=== PATIENT | female | born 1995 | race Caucasian/White ===

== ENCOUNTER 2018-02-04 16:13 | Emergency (ER) | payer OTHER ==
[~2018-02-04] VITALS: Ht 172.7 cm; Wt 90.7 kg
[2018-02-04] MEDS ORDERED: LACTATED RINGERS 1,000 ML IV ONE (16:40)
[2018-02-04 16:56] LABS: BILIRUBIN,URINE NEGATIVE (NEGATIVE); CLARITY,URINE CLEAR; COLOR,URINE YELLOW; GLUCOSE, URINE (UA) NEGATIVE (NEGATIVE); KETONES,URINE NEGATIVE (NEGATIVE); LEUKOCYTE ESTERASE ,URINE NEGATIVE (NEGATIVE); NITRITE,URINE NEGATIVE (NEGATIVE); PH,URINE 6 (5-9); PROTEIN,URINE NEGATIVE (NEGATIVE); UROBILINOGEN,URINE NORMAL (NORMAL)
--- NOTE | 2018-02-04 16:56 | ED Abdominal Pain ---
General Chief Complaint: Abdominal/GI Problems Stated Complaint: PAIN IN RT SIDE Nursing Triage Note: PT SENT [facility] FROM [facility] WITH COMPLAINT OF RIGHT SIDED ABD PAIN. [facility] WAS CONCERNED IT COULD BE PTS APPENDIX. PT STATES PAIN STARTED AROUND 2PM YESTERDAY, AND HAS BEEN RUNNING A FEVER SINCE. PT STATES THAT SHE HAS NOT HAD A BM SINCE SUNDAY, AND IS UNABLE TO GO. Sepsis Screen: No Definite Risk Source of Information: Patient Exam Limitations: No Limitations History of Present Illness Date Seen by Provider: Feb 04, 2018 Time Seen by Provider: 16:40 Initial Comments PT ARRIVES VIA POV FROM [facility] C/O LOWER ABDOMINAL PAIN SINCE 1400 YESTERDAY PAIN IS ALL ACROSS LOWER ABDOMEN, BUT IS WORSE IN RLQ PAIN IS WORSE WITH MOVEMENTS, WALKING, GOING UP STAIRS HAS NOT TAKEN ANYTHING FOR PAIN NO NAUSEA/VOMITING OR DIARRHEA. HAS NOT HAD A BM SINCE Sunday02/02/18 NO FEVER NO URINARY SYMPTOMS ATE BREAKFAST AT 0830 HAD WATER AT 1330 HAD COUPLE OF CUBES OF CHEESE AT 1415 LMP 01/23-01/30. NORMAL. ON OCP'S Allergies and Home Medications Allergies Coded Allergies: No Known Drug Allergies (Unverified , 02/04/18) Patient Home Medication List Home Medication List Reviewed: Yes Review of Systems Review of Systems Constitutional: no symptoms reported Respiratory: No Symptoms Reported Cardiovascular: No Symptoms Reported Gastrointestinal: See HPI, Abdominal Pain; Denies Nausea, Denies Vomiting Genitourinary: No Symptoms Reported Musculoskeletal: no symptoms reported; No back pain Skin: no symptoms reported Psychiatric/Neurological: No Symptoms Reported Endocrine: No Symptoms Reported Hematologic/Lymphatic: No Symptoms Reported Past Kdeccem-Zlzsrh-Ekajwq Hx Patient Social History Alcohol Use: Denies Use Recreational Drug Use: No Smoking Status: Never a Smoker Recent Foreign Travel: No Contact w/Someone Who Travel: No Recent Infectious Disease Expo: No Recent Hopitalizations: No Immunizations Up To Date Tetanus Booster (TDap): Unknown PED Vaccines UTD: Yes Seasonal Allergies Seasonal Allergies: Yes Past Medical History Surgeries: Yes (UMBILICAL HERNIA REPAIR ) Abdominal Respiratory: No Cardiac: No Neurological: No : No Reproductive Disorders: No Female Reproductive Disorders: Denies Genitourinary: No Gastrointestinal: No Musculoskeletal: No Endocrine: No HEENT: No Cancer: No Psychosocial: No Integumentary: No Blood Disorders: No Physical Exam Vital Signs Vital Signs - First Documented 02/04/18 16:23 Temp 100.1 Pulse 92 Resp 18 B/P (MAP) 135/84 (101) Pulse Ox 100 O2 Delivery Room Air Capillary Refill : Less Than 3 Seconds Height/Weight/BMI Height: 5'8.00" Weight: 200lbs. oz. [id number]; BMI Method:Stated General Appearance: WD/WN, no apparent distress, other (WALKS UPRIGHT AND MOVES WITHOUT DIFFICULTY) Respiratory: normal breath sounds, no respiratory distress, no accessory muscle use Cardiovascular: regular rate, rhythm, no murmur Gastrointestinal: normal bowel sounds, soft, no organomegaly, no pulsatile mass ; No distended, No guarding; rebound, tenderness (DIFFUSE LOWER ABDOMINAL TENDERNESS, MOST TENDER IN RLQ. + REBOUND WITH PAIN IN RLQ ); No hernia, No mass Back: normal inspection, no CVA tenderness Neurologic/Psychiatric: bottle caser II-XII nml as tested, no motor/sensory deficits, alert, normal mood/affect, oriented x 3 Skin: normal color, warm/dry Progress/Results/Core Measures Results/Orders Lab Results Laboratory Tests Test 02/04/18 16:35 Range/Units White Blood Count 9.8 4.3-11.0 10^3/uL Red Blood Count 4.89 4.35-5.85 10^6/uL Hemoglobin 14.1 11.5-16.0 G/DL Hematocrit 43 35-52 % Mean Corpuscular Volume 87 80-99 FL Mean Corpuscular Hemoglobin 29 25-34 PG Mean Corpuscular Hemoglobin Concent 33 32-36 G/DL Red Cell Distribution Width 13.5 10.0-14.5 % Platelet Count 275 130-400 10^3/uL Mean Platelet Volume 11.0 H 7.4-10.4 FL Neutrophils (%) (Auto) 67 42-75 % Lymphocytes (%) (Auto) 26 12-44 % Monocytes (%) (Auto) 6 0-12 % Eosinophils (%) (Auto) 1 0-10 % Basophils (%) (Auto) 0 0-10 % Neutrophils # (Auto) 6.5 1.8-7.8 X 10^3 Lymphocytes # (Auto) 2.6 1.0-4.0 X 10^3 Monocytes # (Auto) 0.6 0.0-1.0 X 10^3 Eosinophils # (Auto) 0.1 0.0-0.3 10^3/uL Basophils # (Auto) 0.0 0.0-0.1 10^3/uL Urine Color YELLOW Urine Clarity CLEAR Urine pH 6 5-9 Urine Specific [place] 1.015 L 1.016-1.022 Urine Protein NEGATIVE NEGATIVE Urine Glucose (UA) NEGATIVE NEGATIVE Urine Ketones NEGATIVE NEGATIVE Urine Nitrite NEGATIVE NEGATIVE Urine Bilirubin NEGATIVE NEGATIVE Urine Urobilinogen NORMAL NORMAL MG/DL Urine Leukocyte Esterase NEGATIVE NEGATIVE Urine RBC (Auto) NEGATIVE NEGATIVE Urine RBC RARE /HPF Urine WBC RARE /HPF Urine Squamous Epithelial Cells 2-5 /HPF Urine Crystals NONE /LPF Urine Bacteria NEGATIVE /HPF Urine Casts NONE /LPF Urine Mucus NEGATIVE /LPF Urine Culture Indicated NO Sodium Level 139 135-145 MMOL/L Potassium Level 3.9 3.6-5.0 MMOL/L Chloride Level 103 98-107 MMOL/L Carbon Dioxide Level 26 21-32 MMOL/L Anion Gap 10 5-14 MMOL/L Blood Urea Nitrogen 11 7-18 MG/DL Creatinine 1.03 0.60-1.30 MG/DL Estimat Glomerular Filtration Rate > 60 BUN/Creatinine Ratio 11 Glucose Level 91 70-105 MG/DL Calcium Level 10.0 8.5-10.1 MG/DL Corrected Calcium 9.8 8.5-10.1 MG/DL Total Bilirubin 0.4 0.1-1.0 MG/DL Aspartate Amino Transf (AST/SGOT) 15 5-34 U/L Alanine Aminotransferase (ALT/SGPT) 11 0-55 U/L Alkaline Phosphatase 72 40-136 U/L Total Protein 7.9 6.4-8.2 GM/DL Albumin 4.2 3.2-4.5 GM/DL Amylase Level 69 25-125 U/L Lipase 19 8-78 U/L My Orders Orders - JENNIFER SCHAEFER DO Saline Lock/Iv-Start (02/04/18 16:38) Urine Bedside (02/04/18 16:38) Ct Abd/Pelv W (Appendicitis) (02/04/18 16:38) Amylase (02/04/18 16:38) Cbc With Automated Diff (02/04/18 16:38) Comprehensive Metabolic Panel (02/04/18 16:38) Lipase (02/04/18 16:38) Ua Culture If Indicated (02/04/18 16:38) Acute Abd Series (02/04/18 16:38) Saline Lock/Iv-Start (02/04/18 16:38) Saline Lock/Iv-Start (02/04/18 16:40) Lactated Ringers (Lr 1000 Ml Iv Solution (02/04/18 16:40) Iohexol Injection (Omnipaque 350 Mg/Ml 1 (02/04/18 17:45) Ns (Ivpb) (Sodium Chloride 0.9%) (02/04/18 17:45) Medications Given in ED Current Medications Medications Dose Ordered Sig/Bertha Route Start Time Stop Time Status Last Admin Dose Admin Iohexol 100 ml ONCE ONCE IV 02/04/18 17:45 02/04/18 17:46 DC 02/04/18 17:39 100 ML Lactated Ringer's 1,000 ml @ 0 mls/hr Q0M ONCE IV 02/04/18 16:40 02/04/18 16:42 DC 02/04/18 16:55 1,000 MLS/HR Sodium Chloride 250 ml ONCE ONCE IV 02/04/18 17:45 02/04/18 17:46 DC 02/04/18 17:39 80 ML Vital Signs/I&O 02/04/18 02/04/18 16:23 18:39 Temp 100.1 100.1 Pulse 92 88 Resp 18 18 B/P (MAP) 135/84 (101) 132/78 (101) Pulse Ox 100 100 O2 Delivery Room Air Blood Pressure Mean: 101 Urine -Bedside: Negative Progress Progress Note : Progress Note UNEVENTFUL ER STAY Diagnostic Imaging Comments CT ABDOMEN/PELVIS--NO APPENDICITIS, FEW SMALL MESENTERIC NODES, FEW FLUID FILLED LOOPS OF SMALL BOWEL. PER RADIOLOGIST REPORT @ 181 Reviewed: Reviewed by Me Departure Communication (Admissions) 1813--SPOKE WITH DR. BERMAN, [facility] [employer]. WILL SEE PT IN OFFICE TOMORROW FOR RECHECK Impression Primary Impression: RLQ abdominal pain Disposition: 01 HOME, SELF-CARE Condition: Stable Departure-Patient Inst. Referrals: VINNIE BERMAN MD Patient Instructions: Acute Abdomen (Belly Pain), Adult (DC) Add. Discharge Instructions: CLEAR LIQUIDS--WATER, BROTH, JELLO, GATORADE NO FOOD UNTIL YOU ARE RECHECKED TOMORROW TYLENOL NEEDED FOR PAIN FOLLOW UP WITH DR. BERMAN TOMORROW, CALL IN AM FOR APPOINTMENT RETURN TO ER IF WORSE All discharge instructions reviewed with patient and/or family. Voiced understanding. JENNIFER SCHAEFER DO Feb 04, 2018 16:56
[2018-02-04 17:04] LABS: BASOPHILS % (AUTO) 0 % (0-10); EOSINOPHILS # (AUTO) 0.1 10^3/uL (0.0-0.3); EOSINOPHILS % (AUTO) 1 % (0-10); HEMATOCRIT 43 % (35-52); HEMOGLOBIN 14.1 G/DL (11.5-16.0); LYMPHOCYTES # (AUTO) 2.6 X 10^3 (1.0-4.0); LYMPHOCYTES % (AUTO) 26 % (12-44); MEAN CORPUSCULAR HEMOGLOBIN 29 PG (25-34); MEAN CORPUSCULAR HGB CONC 33 G/DL (32-36); MEAN CORPUSCULAR VOLUME 87 FL (80-99); MONOCYTES # (AUTO) 0.6 X 10^3 (0.0-1.0); MONOCYTES % (AUTO) 6 % (0-12); NEUTROPHILS # (AUTO) 6.5 X 10^3 (1.8-7.8); NEUTROPHILS % (AUTO) 67 % (42-75); PLATELET COUNT 275 10^3/uL (130-400); RED BLOOD COUNT 4.89 10^6/uL (4.35-5.85); RED CELL DISTRIBUTION WIDTH 13.5 % (10.0-14.5); WHITE BLOOD COUNT 9.8 10^3/uL (4.3-11.0)
[2018-02-04 17:12] LABS: BACTERIA,URINE NEGATIVE /HPF; RBC,URINE RARE /HPF; WBC,URINE RARE /HPF
[2018-02-04 17:21] LABS: ALANINE AMINOTRANSFERASE 11 U/L (0-55); ALBUMIN 4.2 GM/DL (3.2-4.5); ALKALINE PHOSPHATASE 72 U/L (40-136); AMYLASE 69 U/L (25-125); BILIRUBIN,TOTAL 0.4 MG/DL (0.1-1.0); BUN/CREATININE RATIO 11; CARBON DIOXIDE 26 MMOL/L (21-32); CHLORIDE 103 MMOL/L (98-107); CREATININE SERUM 1.03 MG/DL (0.60-1.30); GFR ESTIMATED > 60; GLUCOSE 91 MG/DL (70-105); LIPASE 19 U/L (8-78); POTASSIUM 3.9 MMOL/L (3.6-5.0); SODIUM 139 MMOL/L (135-145); TOTAL PROTEIN 7.9 GM/DL (6.4-8.2)
[2018-02-04] MEDS ORDERED: NS 250 ML (IVPB) BAG IV ONE (17:45)
[2018-02-04] MEDS ORDERED: IOHEXOL 350 MG/ML 100 ML (OMNIPAQUE 350) VIAL IV ONE (17:45)
--- NOTE | 2018-02-04 17:48 | Diagnostic Imaging Report ---
INDICATION: Abdominal pain with nausea and vomiting x2 days. FINDINGS: Upright views of the chest show the lungs to be clear. There is no free air under the diaphragm. The abdomen shows normal stool and gas pattern throughout the colon without evidence of obstruction or constipation. The stomach and small bowel are not distended. There are no air-fluid levels. There is no free air. There are no bony abnormalities. No organomegaly or pathologic calcifications are demonstrated. IMPRESSION: Normal abdomen series. Dictated by: Dictated on workstation # [id number]
--- NOTE | 2018-02-04 18:00 | Diagnostic Imaging Report ---
PROCEDURE: CT abdomen and pelvis with contrast, rule out appendicitis. TECHNIQUE: Multiple contiguous axial images were obtained through the abdomen and pelvis after the administration of intravenous contrast. INDICATION: Nausea and vomiting x2 days with lower abdominal pain. FINDINGS: The small bowel is fluid filled though not distended consistent with mild ileus. The terminal ileum is not thickened. The appendix is not dilated. There is no pericecal edema. No appendicoliths. There are a few lymph nodes in the right lower quadrant mesentery, all measuring less than 10 mm. There is no mesenteric edema. There is no free air or free fluid. Colon shows normal stool and gas pattern throughout. No evidence of constipation. No bowel wall thickening to indicate colitis. There is stool and gas in the rectum. Bladder is not distended. Uterus is normal. There are no pelvic masses. There is no free air or free fluid. The lung bases are clear. The liver appears normal. The gallbladder is not distended. Bile ducts are not dilated. Pancreas and spleen are normal. The adrenal glands are normal. Kidneys appear normal. There is enhancement of the abdominal organs and vessels in a normal fashion. There are no bony lesions. IMPRESSION: 1. No findings to suggest appendicitis or inflammatory bowel disease. Fluid-filled loops of small bowel which are not distended and may be secondary to enteritis. 2. There is no free air or free fluid. A few small mesenteric lymph nodes noted in the right lower quadrant consistent with mild adenitis. Dictated by: Dictated on workstation # [id number]
[2018-02-04 18:39] VITALS: BP 132/78
[2018-02-05] MEDS ORDERED: MONT10TA21 PO (10:01)
[2018-02-05] MEDS ORDERED: BIRTH CONTROL PILL PO (10:01)
[2018-02-05] MEDS ORDERED: ACHD5005 PO (12:05)
== END 2018-02-04 18:39 | disposition home or self-care (01) ==
LOC: ER 16:16
DX: R10.31 Right lower quadrant pain (principal); Z87.19 Personal history of other diseases of the digestive system
CPT/HCPCS: 36415; 74022; 74177; 80053; 81000; 82150; 83690; 84703; 85025; 96360

== ENCOUNTER 2018-02-05 09:00 | Day surgery (SDC) | payer OTHER ==
[~2018-02-05] VITALS: Ht 172.7 cm; Wt 95.3 kg
--- NOTE | 2018-02-05 09:20 | Progress Note-Pre Operative ---
Pre-Operative Progress Note H&P Reviewed The H&P was reviewed, patient examined and no changes noted. Date Seen by Provider: Feb 05, 2018 Time Seen by Provider: : Date H&P Reviewed: Feb 05, 2018 Time H&P Reviewed: :19 Pre-Operative Diagnosis: Acute appendicitis VINNIE BERMAN MD Feb 05, 2018 09:20
--- NOTE | 2018-02-05 09:22 | History & Physicial ---
History of Present Illness History of Present Illness Reason for visit/HPI right lower quadrant pain and anorexia of 2 days duration. Date of Admission 02/05/18 Date Seen by a Provider: Feb 05, 2018 Time Seen by a Provider: 09:20 I consulted on this patient on 02/05/18 09:20 Attending Physician Vinnie Berman MD [facility] Consult Allergies and Home Medications Allergies Coded Allergies: No Known Drug Allergies (Unverified , 02/04/18) Patient Home Medication List Home Medication List Reviewed: Yes Past Kwnfqlp-Uoxwie-Hnyixk Hx Patient Social History Marrital Status: single Employed/Student: student, full-time Recent Foreign Travel: No Contact w/other who traveled: No Recent Hopitalizations: No Immunizations Up To Date Tetanus Booster (TDap): Unknown Pediatric: Yes Seasonal Allergies Seasonal Allergies: Yes Surgeries Yes (UMBILICAL HERNIA REPAIR ) Abdominal Respiratory No Cardiovascular No Neurological No Reproductive System Hx Reproductive Disorders: No Female Reproductive Disorders: Denies Genitourinary No Gastrointestinal No Musculoskeletal No Endocrine History of Endocrine Disorders: No HEENT History of HEENT Disorders: No Cancer No Psychosocial History of Psychiatric Problem: No Integumentary History of Skin or Integumenta: No Blood Transfusions History of Blood Disorders: No Review of Systems Constitutional: see HPI EENTM: no symptoms reported Respiratory: no symptoms reported Cardiovascular: no symptoms reported Gastrointestinal: see HPI Genitourinary: no symptoms reported Musculoskeletal: no symptoms reported Skin: no symptoms reported Psychiatric/Neurological: No Symptoms Reported Physical Exam Vital Signs Capillary Refill : Height, Weight, BMI Height: 5'8.00" Weight: 200lbs. oz. 90.172972vx; BMI Method:Stated General Appearance: No Apparent Distress Neck: Normal Inspection Respiratory: Lungs Clear, No Accessory Muscle Use Cardiovascular: Regular Rate, Rhythm Gastrointestinal: Tenderness Neurologic/Psychiatric: Alert, Oriented x3 Skin: Warm/Dry Assessment/Plan Assessment and Plan young lady with clinical features of acute appendicitis. Very small mesenteric lymph nodes. Offered left scapular appendectomy, highlighting distinct possibility of finding a normal appendix, that would be excised regardless. Expected recovery, complications of wound infection and intra-abdominal abscess revealed thoroughly. Willing to proceed. Admission Diagnosis Admission Status: Other (Same Day Surgery) VINNIE BERMAN MD Feb 05, 2018 09:22
[2018-02-05] MEDS ORDERED: ceFAZolin 2 GM IV Premixed 50 ML ONE (09:27)
[2018-02-05] MEDS ORDERED: metroNIDAZOLE 500MG/100ML IVPB 100 ML ONE (09:27)
[2018-02-05 09:30] VITALS: BP 124/80
[2018-02-05] MEDS ORDERED: ceFAZolin 2 GM IV Premixed 50 ML IV ONE (09:30)
[2018-02-05] MEDS ORDERED: LACTATED RINGERS 1,000 ML IV SCH (09:30)
[2018-02-05] MEDS ORDERED: BUP/EPI 0.5% 1:200,000 (SENSORCAINE) 30 ML VIAL ONE (09:32)
[2018-02-05] MEDS ORDERED: metroNIDAZOLE 500MG/100ML IVPB 100 ML IV ONE (09:45)
[2018-02-05] MEDS ORDERED: BIRTH CONTROL PILL PO (10:01)
[2018-02-05] MEDS ORDERED: MONT10TA21 PO (10:01)
[2018-02-05] MEDS ORDERED: proPOfol 200 MG/20 ML (DIPRIVAN) VIAL IV ONE (10:16)
[2018-02-05] MEDS ORDERED: LIDOCAINE PF 2% 2 ML (XYLOCAINE) VIAL ONE (10:16)
[2018-02-05] MEDS ORDERED: ONDANSETRON 4 MG/2 ML (SDV) Z0FRAN ONE (10:16)
[2018-02-05] MEDS ORDERED: MIDAZOLAM 2 MG/2 ML (VERSED) VIAL ONE (10:16)
[2018-02-05] MEDS ORDERED: DEXAMETHASONE 10 MG/ML (DECADRON) 1 ML VIAL ONE (10:16)
[2018-02-05] MEDS ORDERED: fentaNYL INJECTION 100 MCG/2 ML AMP ONE ×2 (10:16→11:53)
[2018-02-05] MEDS ORDERED: SEVOFLURANE (ULTANE) 15 ML INHAL SOLN ONE (10:19)
[2018-02-05] MEDS ORDERED: ROCURONIUM 10 MG/ML 5 ML SYRINGE IV ONE (10:19)
[2018-02-05] MEDS ORDERED: NEOSTIGMINE 1 MG/ML 5 ML SYRINGE ONE (11:41)
[2018-02-05] MEDS ORDERED: LACTATED RINGERS 1,000 ML IV PRN (11:41)
[2018-02-05] MEDS ORDERED: GLYCOPYRROLATE 0.2 MG/ML (ROBINUL) 2 ML VIAL ONE (11:41)
[2018-02-05] MEDS ORDERED: HYDROmorphone 2 MG/ML VIAL (DILAUDID) IV ONE (11:45)
[2018-02-05] MEDS ORDERED: morphine INJ 10 MG/ML 1ML (SYR OR VIAL) IVP ONE (11:45)
[2018-02-05] MEDS ORDERED: ONDANSETRON 4 MG/2 ML (SDV) Z0FRAN IVP PRN (11:45)
--- NOTE | 2018-02-05 12:04 | Operative Report ---
Operative Report Date of Procedure/Surgery Feb 05, 2018 Surgeon (s) VINNIE BERMAN MD Track Announcer (s): N/A Post-Operative Diagnosis acute retrocecal appendicitis Procedure Performed laparoscopic appendectomy Description of Procedure Anesthesia Type: General Estimated blood loss (mL): minimal Specimen(s) collected/removed appendix Description of the Procedure Indication for the procedure: This is a lady presented with clinical features of acute appendicitis. Therefore, she was offered laparoscopic appendectomy. Informed consent was obtained after reviewing the procedure and complications of wound infection, intra-abdominal abscess etc. The possibility of finding a normal appendix, that would be excised regardless, was also highlighted. Description of the procedure: She was placed supine on the operating table and general anesthesia induced. 2 g of Ancef and 500 mg of Flagyl were administered intravenously as prophylaxis against infection. Sequential compression devices were placed around her legs, to minimize the risk of venous thrombosis. Abdomen was prepared and draped in the usual sterile manner. a supra umbilical incision was made and the linea alba incised vertically. A Jacobs cannula was placed and carbon dioxide insufflated, to an intra-abdominal pressure of 15 mmHg. Anatomy was visualized using the 30 laparoscope. Omentum was wrapped around the right lower quadrant, obscuring the appendix. Under direct view, I placed a 5 mm trocar over the right upper quadrant, followed by a 12 mm trocar over the left lower quadrant. The patient was then turned into steep Trendelenburg position, the right side tilted up. Omentum was displaced out of the right lower quadrant and the ileocecal junction mobilized using the Harmonic scalpel. Appendix was found in the retrocecal position with the tip being inflamed. Mesoappendix was controlled using Harmonic scalpel and the base of the appendix transected using an Endo TITO , 2.5 mm stapler. Hemostasis along the staple line was satisfactory and the appendix placed in an Endo Catch bag, being removed via the supraumbilical trocar site. The fascia over this incision was closed using #1 Vicryl. Skin incisions were closed using 4-0 Vicryl, in a subcuticular fashion. 0.5 percent Marcaine with epinephrine was infiltrated along the incisions both preemptively and at the conclusion of the operation. She tolerated the procedure well, was extubated in the operating room and taken to the recovery room in a stable condition. Findings of the Procedure see op report Allergies and Home Medications Allergies Coded Allergies: No Known Drug Allergies (Unverified , 02/04/18) Home Medications Montelukast Sodium 10 Mg Tablet, 10 MG PO DAILY, (Reported) [ Control Pill] , 1 EA PO DAILY, (Reported) Patient Home Medication List Home Medication List Reviewed: Yes VINNIE BERMAN MD Feb 05, 2018 12:04
[2018-02-05] MEDS ORDERED: ACHD5005 PO (12:05)
--- NOTE | 2018-02-05 12:06 | Discharge Inst-Simple/Standard ---
Discharge Inst-Standard Discharge Medications New, Converted or Re-Newed RX: RX on Chart Patient Instructions/Follow Up Plan of Care/Instructions/FU: Band-Aids off in 48 hours. Follow-up in a week. Activity as Tolerated: Yes Discharge Diet: No Restrictions VINNIE BERMAN MD Feb 05, 2018 12:06
[2018-02-05 13:15] VITALS: BP 125/89
[2018-02-05] MEDS ORDERED: HYDROcodone/APAP 5 MG/325 MG (LORTAB) TAB ONE (13:18)
--- NOTE | 2018-02-05 13:36 | Anesthesia-General Post-Op ---
General Patient Condition Mental Status/LOC: Same as Preop Cardiovascular: Satisfactory Nausea/Vomiting: Absent Respiratory: Satisfactory Pain: Controlled Complications: Absent Post Op Complications Complications None Follow Up Care/Instructions Patient Instructions None needed. Anesthesia/Patient Condition Patient Condition Patient is doing well, no complaints, stable vital signs, no apparent adverse anesthesia problems. No complications reported per nursing. D/C home per [facility] Criteria: Yes JOB YU CRNA Feb 05, 2018 13:36
[2018-02-05 13:45] VITALS: BP 123/76
[2018-02-05] MEDS ORDERED: HYDROcodone/APAP 5 MG/325 MG (LORTAB) TAB PO PRN (13:45)
[2018-02-05 14:15] VITALS: BP 128/83
[2018-02-05 14:20] VITALS: BP 128/83
== END 2018-02-05 14:50 | disposition home or self-care (01) ==
LOC: SDC 09:00
PROVIDERS: ATTEND Surgery
DX: K35.80 Unspecified acute appendicitis (principal); J30.2 Other seasonal allergic rhinitis
CPT/HCPCS: 84703; 87081